=== PATIENT | female | born 1965 | race African-American/Black ===

== ENCOUNTER 2016-12-02 18:57 | Emergency (ER) ==
--- NOTE | 2016-12-02 20:00 | PROVIDER DOCUMENTATION ---
HPI-Chest Pain <Yeimy Mendosa - Last Filed: 12/02/16 20:43> - General Source: patient - History of Present Illness-CP Location: reports: substernal Chest Pain Radiation: reports: no radiation Quality of Pain: reports: sharp Severity in ED: mild Onset/Duration: 1 week ago Timing: still present, getting worse Context/Activities at Onset: reports: none Modifying Factors: improves with: analgesics Associated Symptoms: reports: denies symptoms Nitro Today/Relief: no nitro taken today Aspirin Treatment Today: provided at home (Pt took 2 ASA 325mg prior to arrival. ) Similar Symptoms Previously?: No Recently Seen Here or By Another Healthcare Provider: No <Pedro Pablo Narayan - Last Filed: 12/03/16 02:06> - General Chief Complaint: General Adult Stated Complaint: CHEST PAIN Time Seen by Provider: 12/02/16 19:55 Allergies/Adverse Reactions: Patient Allergies Allergy/AdvReac Type Severity Reaction Status Date / Time No Known Allergies Allergy Verified 12/02/16 19:08 Home Medications: Home Medication List Medication Instructions Recorded Confirmed Last Taken Type Ketorolac [Toradol] 10 mg PO Q8H PRN PRN #14 tablet 12/02/16 Unknown Rx Omeprazole [Prilosec] 40 mg PO DAILY 12/02/16 12/02/16 Unknown History - History of Present Illness-CP Nature of Presenting Problem: 51 yof c/o chest pain for about a week. describes pain as a sharp pain. Pt has some tenderness on palpation. No change in pain level with deep breathing. Pain does radiate more from the right side of her chest to the left side. (Pedro Pablo Narayan) Review of Systems - Adult - REVIEW OF SYSTEMS - ADULT Constitutional: reports: see HPI. denies: no symptoms reported, chills, fever, fatique, night sweats, weight gain, weight loss, other Eyes: reports: no symptoms reported. denies: see HPI, discharge, dry eyes, decreased vision, blurred vision, double vision, eye pain, redness, other Ears, Nose, Mouth & Throat: reports: no symptoms reported. denies: see HPI, ear discharge, ear pain, hearing loss, tinnitus, epistaxis, sinus problem, nose pain, loose teeth, mouth/dental pain, mouth swelling, hoarseness, throat pain, throat swelling, other Cardiovascular: reports: see HPI, chest pain. denies: no symptoms reported, edema, heart murmur, irregular heart rate, orthopnea, palpitations, poor circulation, PND, syncope, other Respiratory: reports: no symptoms reported. denies: see HPI, chronic cough, cough, dyspnea on exertion, excessive sputum production, hemoptysis, pleurisy, shortness of breath, wheezing, other Gastrointestinal: reports: no symptoms reported. denies: see HPI, abdominal pain, hematemesis, constipation, diarrhea, difficulty swallowing, frequent heartburn, nausea, poor appetite, rectal bleeding, vomiting, other Genitourinary: reports: no symptoms reported. denies: see HPI, dysuria, discharge, frequency, flank pain, frequent UTI's, hematuria, hesitency, incontinence, urinary retention, urgency, other Musculoskeletal: reports: no symptoms reported. denies: see HPI, bone pain, back pain, frequent leg cramps, joint pain, joint swelling, muscle aches, muscle weakness, neck pain, other Integumentary: reports: no symptoms reported. denies: see HPI, hives, hair loss , itching, mole changes, nail changes, rash, skin sores/ulcer, skin thickening, other Neurological: reports: no symptoms reported. denies: see HPI, ataxia, dizziness /vertigo, headache/migraines, loss of balance, numbness, paresthesia, seizure, slurred speech, syncope, tremors, other Psychiatric: reports: no symptoms reported. denies: see HPI, anxiety, anti- depressant use, alcohol/drug dependence, depression, emotional problems, insomnia, panic attacks, suicidal thoughts, other All Other Systems: Reviewed and Negative <Pedro Pablo Narayan - Last Filed: 12/03/16 02:06> Past History - Adult - PAST MEDICAL HISTORY-ADULT Review of Records: reports: Old Records Reviewed, Nursing Assessment Review, Medications Reviewed, Social history reviewed & non-contributory. <Pedro Pablo Narayan - Last Filed: 12/03/16 02:06> Physical Exam-General - PHYSICAL EXAM-ADULT Initial Vital Signs Reviewed: Yes - CONSTITUTIONAL General Appearance: appears well, alert, no apparent distress. negative: mild distress, moderate distress, severe distress, cachetic, obese, thin, anxious, lethargic, slow to respond, obtunded, combative, other - EYES Eyes: PERRL/EOMI, pink conjunctivae. negative: fundi clear, no AV nicking, anisocoria, conjuctival exudate, EOM palsy, meningismus, pale conjunctivae, photophobia, sclera injected, scleral icterus, subconjunctival hemorrhage, sunken eyes, other - HEAD, EARS, NOSE, MOUTH & THROAT HENMT: normocephalic/atraumatic, moist mucous membranes, normal ENT inspection, TMs normal, pharynx normal. negative: angioedema, dental decay, hearing deficit , pharyngeal erythema, tonsillar exudate, TM abnormal, TM obscurred by cerumen, frontal tenderness, maxillary tenderness, other - NECK Neck: non-tender, full range of motion, supple, normal inspection. negative: Brudzinski's sign, carotid bruit, C-spine tenderness, limited range of motion, lymphadenopathy, meningismus, trachial deviation, tender lateral, tender midline , thyromegaly, other - RESPIRATORY Respiratory: chest non-tender, lungs clear, normal breath sounds, no pleuratic chest pain, no respiratory distress, no accessory muscle use. negative: respiratory distress, decreased breath sounds, accessory muscle use, crackles, rales, rhonchi, stridor, wheezing, dull on percussion, prolonged expiration, pain on inspiration, plerual rub, retractions, splinting, decreased rate, increased rate, crepitus, other - CARDIOVASCULAR Cardiovascular: normal peripheral pulses, regular rate, rhythm, no edema, no gallop, no JVD, no murmur. negative: JVD, bradycardia, tachycardia, diastolic murmur, systolic murmur, gallop/S3, gallop/S4, extra beats, friction rub, irregularly irregular, PMI displaced laterally, other - CHEST (BREASTS) Chest/Breast: deferred. negative: normal breast inspection, no masses/lumps, no tenderness, nipple discharge, tenderness, mass/lump noted, other - GASTROINTESTINAL (ABDOMEN) Abdominal Exam: normal bowel sounds, non tender, soft, no organomegaly, no pulsatile mass. negative: abdominal bruit, abnormal bowel sounds, distended, guarding, rigid, rebound, tenderness, hernia, mass, hepatomegaly, spleenomegaly , McBurney's point tenderness, Worley's sign, obturator sign, prominent aortic pulsations, psoas, Rovsing's sign, other - GENITOURINARY Female Genitalia/Pelvic Exam: deferred Rectal Exam: deferred - LYMPHATIC Lymphatic: no adenopathy. negative: axilla node tender, cervical node tenderness, inguinal node tender, enlargement, striations, streaking, other - MUSCULOSKELETAL Back Exam: normal inspection, no CVA tenderness, no vertebral tenderness. negative: CVA tenderness, decreased range of motion, ecchymosis, kyphosis, lordosis, muscle spasm, scoliosis, swelling, vertebral tenderness, other Extremity: normal range of motion, non-tender, normal gait, normal inspection, no pedal edema, no calf tenderness, normal capillary refill. negative: pelvis stable, abnormal NV exam, calf tenderness, deformity, erythema, inflammation, joint effusion, pulse deficit, pedal edema, slow capillary refill, swelling, tenderness, other - SKIN Integumentary: normal color, normal turgor, warm/dry - NEUROLOGIC Neurologic: grossly normal - PSYCHIATRIC Psych/Mental Status: oriented x 3 <Pedro Pablo Narayan - Last Filed: 12/03/16 02:06> Progress - EKG 1 Time of EKG reading by physician:: 19:10 EKG Read and Signed by:: El Thomas EKG Interpretation (*Must complete 3 of following elements*): Normal Rate: 72 Rhythm: NSR Climax: normal <Yeimy Mendosa - Last Filed: 12/02/16 20:43> - XRAY 1 XRAY Study: Chest Impression: Normal (per radiologist) <Pedro Pablo Narayan - Last Filed: 12/03/16 02:06> - PLAN OF CARE/RESULTS Progress/Plan/Lab Results: Laboratory Tests 12/02/16 12/02/16 12/02/16 20:10 20:10 20:10 WBC RBC Hgb Hct MCV MCH MCHC RDW Std Deviation Plt Count MPV Immature Gran % (Auto) Neut % (Auto) Lymph % (Auto) [place] % (Auto) Eos % (Auto) Baso % (Auto) Immature Gran # (Auto) Neut # (Auto) Lymph # (Auto) [place] # (Auto) Eos # (Auto) Baso # (Auto) PT INR APTT (Factor Assay) D-Dimer Sodium 136 Potassium 3.4 L Chloride 102 Carbon Dioxide 23 L Anion Gap 11 BUN 10 Creatinine 0.9 Estimated GFR/1.73 m2 > 60 BUN/Creatinine Ratio 11 Glucose 98 Calculated Osmolality 271 Calcium 9.1 Magnesium 1.9 Total Bilirubin 0.50 AST 17 ALT 20 Alkaline Phosphatase 87 Creatine Kinase 158 Troponin T < 0.010 Lzj-Q-Vpqetbszjdm Pept 47 Total Protein 7.3 Albumin 4.3 Globulin 3.0 Albumin/Globulin Ratio 1.0 12/02/16 12/02/16 20:10 20:10 WBC 6.88 RBC 4.55 Hgb 12.4 Hct 37.5 MCV 82.4 MCH 27.3 MCHC 33.1 RDW Std Deviation 14.1 Plt Count 349 MPV 8.9 Immature Gran % (Auto) 0.3 Neut % (Auto) 49.7 Lymph % (Auto) 39.0 [place] % (Auto) 7.4 Eos % (Auto) 3.2 Baso % (Auto) 0.4 Immature Gran # (Auto) 0.02 Neut # (Auto) 3.42 Lymph # (Auto) 2.68 [place] # (Auto) 0.51 Eos # (Auto) 0.22 Baso # (Auto) 0.03 PT 14.2 INR 1.07 APTT (Factor Assay) 28.8 D-Dimer 0.44 Sodium Potassium Chloride Carbon Dioxide Anion Gap BUN Creatinine Estimated GFR/1.73 m2 BUN/Creatinine Ratio Glucose Calculated Osmolality Calcium Magnesium Total Bilirubin AST ALT Alkaline Phosphatase Creatine Kinase Troponin T Ioc-Q-Qhsyibvwush Pept Total Protein Albumin Globulin Albumin/Globulin Ratio Orders Category Date Time Status Cardiac Monitoring DIRECTED Care 12/02/16 19:59 Active CHEST-2 VIEWS [RAD] Stat Exams 12/02/16 19:59 Taken CBC WITH ELECTRONIC DIFF [HEME] Stat Lab 12/02/16 20:10 Completed CK PROFILE [SP CHEM] Stat Lab 12/02/16 20:10 Completed COMPREHENSIVE METABOLIC PANEL [CHEM] Stat Lab 12/02/16 20:[address] D-DIMER [address] [COAG] Stat Lab 12/02/16 20:10 Completed MAGNESIUM [CHEM] Stat Lab 12/02/16 20:10 Completed PRO B-NATRIURETIC PEPTIDE Stat Lab 12/02/16 20:10 Completed [address]IME WITH INR PL [COAG] Stat Lab 12/02/16 20:[address] [COAG] Stat Lab 12/02/16 20:10 Completed TROPONIN T Stat Lab 12/02/16 20:10 Completed EKG [EKG] Stat Ther 12/02/16 19:09 Draft Vital Signs Temp Pulse Resp BP Pulse Ox 12/02/16 21:15 70 12 141/99 99 12/02/16 20:29 83 20 163/97 98 12/02/16 19:05 98 F 76 18 163/100 99 No Known Allergies Allergy (Verified 12/02/16 19:08) Ketorolac [Toradol] 10 mg PO Q8H PRN PRN #14 tablet 12/02/16 Omeprazole [Prilosec] 40 mg PO DAILY 12/02/16 Laboratory 12/02/16 12/02/16 12/02/16 20:10 20:10 20:10 WBC 6.88 RBC 4.55 Hgb 12.4 Hct 37.5 MCV 82.4 MCH 27.3 MCHC 33.1 RDW Std Deviation 14.1 Plt Count 349 MPV 8.9 Immature Gran % (Auto) 0.3 Neut % (Auto) 49.7 Lymph % (Auto) 39.0 [place] % (Auto) 7.4 Eos % (Auto) 3.2 Baso % (Auto) 0.4 Immature Gran # (Auto) 0.02 Neut # (Auto) 3.42 Lymph # (Auto) 2.68 [place] # (Auto) 0.51 Eos # (Auto) 0.22 Baso # (Auto) 0.03 PT 14.2 INR 1.07 APTT (Factor Assay) 28.8 D-Dimer 0.44 Sodium Potassium Chloride Carbon Dioxide Anion Gap BUN Creatinine Estimated GFR/1.73 m2 BUN/Creatinine Ratio Glucose Calculated Osmolality Calcium Magnesium Total Bilirubin AST ALT Alkaline Phosphatase Creatine Kinase Troponin T Vqq-W-Oechywpzcyf Pept 47 Total Protein Albumin Globulin Albumin/Globulin Ratio 12/02/16 12/02/16 20:10 20:10 WBC RBC Hgb Hct MCV MCH MCHC RDW Std Deviation Plt Count MPV Immature Gran % (Auto) Neut % (Auto) Lymph % (Auto) [place] % (Auto) Eos % (Auto) Baso % (Auto) Immature Gran # (Auto) Neut # (Auto) Lymph # (Auto) [place] # (Auto) Eos # (Auto) Baso # (Auto) PT INR APTT (Factor Assay) D-Dimer Sodium 136 Potassium 3.4 L Chloride 102 Carbon Dioxide 23 L Anion Gap 11 BUN 10 Creatinine 0.9 Estimated GFR/1.73 m2 > 60 BUN/Creatinine Ratio 11 Glucose 98 Calculated Osmolality 271 Calcium 9.1 Magnesium 1.9 Total Bilirubin 0.50 AST 17 ALT 20 Alkaline Phosphatase 87 Creatine Kinase 158 Troponin T < 0.010 Lob-F-Xtewlchbkya Pept Total Protein 7.3 Albumin 4.3 Globulin 3.0 Albumin/Globulin Ratio 1.0 (Pedro Pablo Narayan) Departure <DeondreYeimy - Last Filed: 12/02/16 20:43> - Departure Time of Disposition Order: 21:28 Certified Medical Emergency: Emergent <Pedro Pablo Narayan - Last Filed: 12/03/16 02:06> - Departure DIAGNOSIS: Costochondritis Disposition: HOME 01 Condition: Stable Additional Instructions: ED Follow Up Instructions: You have been treated by a care provider in the Emergency Department. These instructions are being provided to you so you can have an understanding of how to care for yourself upon discharge. Upon discharge from the Emergency Department, you are responsible for making arrangements for follow-up care by a physician of your choice. Take all prescribed medications as directed. Return to the Emergency Department immediately for any new or worsening symptoms. You may call the Physician Referral phone number at [phone] to obtain a list of Physicians who are taking new patients. Prescriptions: Ketorolac [Toradol] 10 mg PO Q8H PRN PRN #14 tablet PRN Reason: Pain Referrals: Lanny Brewer MD [Primary Care Provider] - Forms: Return to School/Parent Work Instructions: Costochondritis, Mpna-[id number], Ketorolac tablets Attestation - Physician/ AYO Attestation Patient care was provided by Advanced Practice Provider:: Yes Advanced Practice Provider:: Pedro Pablo Narayan Advanced Practice Provider documentation review:: The Mid-level provider documentation, treatment plan and medical decision making was reviewed by the physician who agrees with all treatment and medical decision making by the MLP. <Pedro Pablo Narayan - Last Filed: 12/03/16 02:06> Physician Attestation
[2016-12-02 20:14] LABS: MANUAL DIFF NEEDED? NO
[2016-12-02 20:15] LABS: BASO% 0.4 % (0.0-0.8); EOS# 0.22 X1000 (0.0-0.7); EOS% 3.2 % (0.0-10.0); HEMATOCRIT 37.5 % (37.0-47.0); HEMOGLOBIN 12.4 g/dL (12.0-16.0); IMM GRAN# 0.02 X1000 (0.0-0.04); IMM GRAN% 0.3 % (0.0-0.5); LYMPH# 2.68 X1000 (1.2-3.4); MCH 27.3 PG (27-31); MCHC 33.1 g/dL (33-37); MCV 82.4 FL (81-99); MONO# 0.51 X1000 (0.11-0.59); MONO% 7.4 % (1.7-9.3); MPV 8.9 FL (7.4-10.4); NEUT% 49.7 % (42.2-75.2); PLT 349 X1000 (130-400); RBC 4.55 XMIL (4.2-5.4)
[2016-12-02 20:40] LABS: INR 1.07 (0.86-1.15); PROTIME 14.2 Seconds (12.1-15.5)
[2016-12-02 20:41] LABS: PTT PL 28.8 Seconds (22.6-43.9)
--- NOTE | 2016-12-02 20:51 | EKG Report ---
Test Performed on : 12/02/2016 7:10:45 PM Test Reason : RT CHEST DISCOMFORT /LEFT BREAST X 1 WEEK Blood Pressure : / mmHG Vent. Rate : 072 BPM Atrial Rate : 072 BPM P-R Int : 168 ms QRS Dur : 070 ms QT Int : 414 ms P-R-T Axes : 043 050 039 degrees QTc Int : 453 ms Normal sinus rhythm. Normal ECG When compared with ECG of 16-DEC-2007 09:10, No significant change was found Unconfirmed Result
[2016-12-02 21:02] LABS: AGAP 11; ALBUMIN 4.3 g/dL (3.5-5.0); ALKALINE PHOSPHATASE 87 U/L (32-104); BUN 10 mg/dL (8-22); CALCIUM 9.1 mg/dL (8.8-10.2); CHLORIDE 102 mmol/L (98-107); CK PROFILE 158 U/L (24-173); COSMO 271; GOT 17 U/L (10-30); GPT 20 U/L (10-36); MAGNESIUM 1.9 mg/dL (1.5-2.7); POTASSIUM 3.4 mmol/L (3.5-5.1); SODIUM 136 mmol/L (136-145); TCO2 23 mmol/L (25-35); TOTAL PROTEIN 7.3 g/dL (6.3-8.3)
[2016-12-02 21:16] VITALS: BP 141/99
--- NOTE | 2016-12-03 08:41 | Diag Imaging Result Document ---
PROCEDURE NAME: CHEST-2 VIEWS - 12/02/2016 CHEST, 2 VIEWS: COMPARISON: No comparison exam. FINDINGS: Heart size is normal. There is slight tortuosity of the thoracic aorta. There are calcified left hilar lymph nodes from old granulomatous disease. The lungs appear clear. There is no pleural effusion or pneumothorax identified. IMPRESSION: No evidence of acute disease.
== END 2016-12-02 21:39 | disposition home or self-care (01) ==
LOC: P.ED 18:57
DX: M94.0 Chondrocostal junction syndrome [Tietze] (principal); R07.89 Other chest pain
CPT/HCPCS: 71020; 80053; 82550; 83735; 83880; 84484; 85025; 85379; 85610; 85730; 93005; 99283